=== PATIENT | female | born 1925 | race Caucasian/White ===

== ENCOUNTER → 2016-10-14 | Day surgery (SDC) | payer MEDICARE, OTHER ==
[~2016-10-14] MED LIST: AMLO2.5T OR; BUPIVACAINE/EPINEPHRINE 0.25% PF 30 ML VIAL ONE; ENAL20TA81 PO; HYDR12.57 PO; LACTATED RINGER'S 1000 ML INJ 1,000 ML ONE; LEVO88TA21 PO; MIDAZOLAM HCL 2 MG/2 ML VIAL ONE; NEOMYCIN/POLYMYXIN/BACITRACIN OINT 15 GM TUBE ONE; ONDANSETRON HCL 4 MG/2 ML VIAL IV PUSH ONE; PROP20TA24 PO; PROPOFOL 200 MG/20 ML AMP IV ONE; VANCOMYCIN HCL 1000 MG VIAL ONE
--- NOTE | 2016-10-18 10:56 | TN ---
cc: NOEMY TAYLOR DATE OF SURGERY: 10/14/2016 PREOPERATIVE DIAGNOSES 1. Invasive melanoma of left upper extremity. 2. 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 3. 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 POSTOPERATIVE DIAGNOSES 1. Invasive melanoma of left upper extremity. 2. 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 3. 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 PROCEDURES 1. Wide excision of left upper extremity thin melanoma 6 cm x 2.5 cm. 2. Wide excision of left medial to marionette melanoma in situ 3.5 x 1.5 cm with simple closure of wound. 3. Excision of right lateral to eyebrow basal cell carcinoma 3 cm x 1.2 cm with simple closure of wound. ANESTHESIA General and local anesthetic. ATTENDING SURGEON Noemy Taylor MD. DATA COORDINATOR Staff. BLOOD LOSS Less than 10 cc. COMPLICATIONS None. FINDINGS All wounds closed with minimal tension. INDICATION FOR PROCEDURE The patient is an 89-year-old female with multiple melanomas and melanomatous skin cancers. The patient was referred to surgical oncology for removal in an operating room setting. The patient was recommended plastic surgery for removal of her facial lesions. However, she did decline plastic surgery referral and wished general surgery to remove her facial lesions as she did not want to delay her surgery to be evaluated by a plastic surgeon. We agreed to this and proceeded with the operation. The risks, benefits and alternatives to wide excision of both upper extremity and two facial lesions were explained to the patient in detail prior to the procedure and the patient agreed to undergo the procedure. PROCEDURE After informed consent was obtained, the patient was taken to the operating room and placed in a supine position and placed under general anesthesia. The patient's right side of her face right of the eyebrow and left lateral to her lip and medial to the left marionette skin crease was prepped with Betadine. The left upper extremity was prepped with ChloraPrep and draped in sterile fashion. We started with the excision of the right lesion were we injected local anesthetic at all the planned excision sites and marked these out with appropriate margins. Approximately 0.5 cm from the facial lesions and that 1 cm on the extremity lesion. This was marked with the skin line of tension. We then excised the right lateral to eyebrow lesion horizontally with a 15-blade scalpel. We used Bovie electrocautery to get hemostasis. This was undermined above and beyond to free up some skin flaps approximately 1 cm on either side and this was closed with a simple running 4-0 nylon suture. This was of minimal tension. Antibacterial ointment was then applied. This wound was approximately 2.5 cm x 1.2 cm. We then turned our attention the left medial to marionette lesion. This was excised with this skin lines in tension with a 15-blade scalpel completely. We used Bovie electrocautery to get some hemostasis of some minimal capillary site bleeding. With minimal undermining with some scissors, mobilized some skin to minimize bunching of the skin. We closed this with a running 4-0 nylon without difficulty and with minimal tension. Antibacterial ointment was applied. This wound was 3.5 x 1.5 cm. We then turned our attention to the left upper extremity lesion. This was a 6 cm x 2.5 cm excision with a 15-blade scalpel without difficulty. Used the Bovie electrocautery to dissect down to the subcutaneous tissue and down to the superficial fascia and removed this. A stitch was marked for superior and this was passed off for permanent processing. We then used deep dermal Vicryl sutures followed by Mastisol and Steri-Strips for wound closure with minimal tension. We then placed a sterile dressing. At this point time, the patient was discontinued of the anesthesia and taken to the PACU in stable condition. The patient tolerated the procedure well. No apparent complications. All counts were correct. I was present and scrubbed for the entire procedure. MD BRADLY Lin/BRANDON /10:00 PM /10:15 AM
== END | disposition home or self-care (01) ==
LOC: ESDC 12:04
PROVIDERS: ATTEND Surgery
DX: C43.62 Malignant melanoma of left upper limb, including shoulder (principal); C43.39 Malignant melanoma of other parts of face; C44.319 Basal cell carcinoma of skin of other parts of face
CPT/HCPCS: 88305; 88341; 88342; J2250; J2405; J3010; J3370; J7120

== ENCOUNTER 2017-11-07 17:50 | Emergency (ER) | payer MEDICARE, OTHER ==
[~2017-11-07] VITALS: Ht 147.3 cm; Wt 53.2 kg
[~2017-11-07 17:50] MED LIST changes: -BUPIVACAINE/EPINEPHRINE 0.25% PF 30 ML VIAL ONE; -LACTATED RINGER'S 1000 ML INJ 1,000 ML ONE; -MIDAZOLAM HCL 2 MG/2 ML VIAL ONE; -NEOMYCIN/POLYMYXIN/BACITRACIN OINT 15 GM TUBE ONE; -ONDANSETRON HCL 4 MG/2 ML VIAL IV PUSH ONE; -PROPOFOL 200 MG/20 ML AMP IV ONE; -VANCOMYCIN HCL 1000 MG VIAL ONE
[2017-11-07 18:26] VITALS: BP 155/81; PULSE 58; RESP 18; TEMP 98.7; O2SAT 95
[2017-11-07] MEDS ORDERED: ENAL20TA81 PO (19:58)
[2017-11-07] MEDS ORDERED: AMLO2.5T PO (19:58)
[2017-11-07] MEDS ORDERED: DOXY1CAP91 (19:58)
[2017-11-07] MEDS ORDERED: HYDR12.57 PO (19:58)
[2017-11-07] MEDS ORDERED: BENZ100 PO (19:58)
[2017-11-07] MEDS ORDERED: PROP40TA3 PO (19:58)
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
[2017-11-07] MEDS ORDERED: SODIUM CHLORIDE 0.9% FLUSH 10 ML FLUSH IVF PRN (20:15)
[2017-11-07] MEDS: RESP: ALBUTEROL 2.5 MG/IPRATROPIUM 0.5 MG NEB (SCH) INH ×3 (20:27→21:03)
[2017-11-07 20:56] LABS: AUTOMATED NEUTROPHIL # 5.6 TH/MM3 (1.8-7.7); BASOPHIL # 0.1 TH/MM3 (0-0.2); BASOPHIL % 1.3 % (0.0-2.0); EOSINOPHIL # 0.1 TH/MM3 (0-0.4); EOSINOPHIL % 0.6 % (0.0-4.0); HEMATOCRIT 48.3 % (35.0-46.0); HEMOGLOBIN 16.1 GM/DL (11.6-15.3); LYMPH % 18.5 % (9.0-44.0); LYMPHOCYTE # 1.7 TH/MM3 (1.0-4.8); MEAN CELL VOLUME 93.4 FL (80.0-100.0); MEAN CORPUSCULAR HEMOGLOBIN 31.1 PG (27.0-34.0); MEAN CORPUSCULAR HGB CONC 33.3 % (32.0-36.0); MONO % 19.9 % (0.0-8.0); MONOCYTE # 1.9 TH/MM3 (0-0.9); NEUT % 59.7 % (16.0-70.0); PLATELET COUNT 181 TH/MM3 (150-450); RED BLOOD COUNT 5.17 MIL/MM3 (4.00-5.30); RED CELL DISTRIBUTION WIDTH 12.2 % (11.6-17.2); WHITE BLOOD COUNT 9.4 TH/MM3 (4.0-11.0)
--- NOTE | 2017-11-07 21:04 | RADRPT ---
EXAM DATE/TIME: 11/07/2017 20:43 [facility] COMPARISON: No previous studies available for comparison. INDICATIONS : Pneumonia- Chest pain and shortness of breath. MEDICAL HISTORY : Hypertension. Pneumonia. SURGICAL HISTORY : None. ENCOUNTER: Initial ACUITY: 2 days PAIN SCORE: 3/10 LOCATION: Bilateral chest FINDINGS: AP and lateral views of the chest demonstrate a normal-sized cardiac silhouette with calcification of the aorta. Lungs are underinflated with mild atelectasis at the left lung base. No effusion, consoli dation, or pneumothorax is identified. Bones and soft tissues demonstrate no acute finding. There is thoracic and lumbar scoliosis. CONCLUSION: 1. No acute cardiopulmonary abnormality is identified. There is mild atelectasis at the left lung bas e. 2. Severe thoracic and lumbar scoliosis. Feliberto Valdes MD on November 07, 2017 at 21:01 Board Certified Radiologist. This report was verified electronically.
[2017-11-07 21:12] LABS: ALBUMIN 3.7 GM/DL (3.4-5.0); ALKALINE PHOSPHATASE 82 U/L (45-117); ALT (GPT) 22 U/L (10-53); AST (GOT) 31 U/L (15-37); BICARBONATE 26.8 MEQ/L (21.0-32.0); BLOOD UREA NITROGEN 8 MG/DL (7-18); CALCIUM 8.8 MG/DL (8.5-10.1); CHLORIDE 86 MEQ/L (98-107); CREATININE 0.63 MG/DL (0.50-1.00); GLOMERULAR FILTRATION RATE 89 ML/MIN (>89); GLUCOSE,RANDOM 108 MG/DL (74-106); TOTAL BILIRUBIN ADULT 1.2 MG/DL (0.2-1.0); TOTAL PROTEIN 7.3 GM/DL (6.4-8.2)
[2017-11-07 21:13] LABS: SODIUM (NA) 122 MEQ/L (136-145)
[2017-11-07 21:35] LABS: BILIRUBIN, URINE NEG (NEG); BLOOD, URINE NEG (NEG); GLUCOSE,URINE NEG (NEG); KETONE, URINE TRACE mg/dL (NEG); NITRITE,URINE NEG (NEG); URINE LEUKOCYTE ESTERASE SMALL (NEG)
[2017-11-07 21:45] LABS: URINE COLOR YELLOW (YELLW/STRAW)
[2017-11-07 21:46] LABS: BACTERIA, URINE OCC /hpf; RBC, URINE 0-2 /hpf (0-3); SQUAMOUS EPITHELIAL CELL URINE 0-5 /hpf (0-5)
[2017-11-07 22:20] VITALS: BP 142/78; PULSE 89; RESP 16; O2SAT 99
[2017-11-07] MEDS ORDERED: ALBUAER3 INH (23:02)
[2017-11-07] MEDS ORDERED: GUAISYP4 PO (23:02)
[2017-11-07] MEDS ORDERED: guaiFENesin/CODEINE SYRUP 200 MG/20 MG/10 ML CUP PO ONE (23:15)
== END 2017-11-07 23:31 | disposition home or self-care (01) ==
LOC: PHED 17:50
DX: J40 Bronchitis, not specified as acute or chronic (principal); K57.92 Diverticulitis of intestine, part unspecified, without perforation or abscess without bleeding; E87.1 Hypo-osmolality and hyponatremia; E86.0 Dehydration; R06.02 Shortness of breath; I10 Essential (primary) hypertension; Z88.0 Allergy status to penicillin; Z88.2 Allergy status to sulfonamides; Z88.1 Allergy status to other antibiotic agents
CPT/HCPCS: 36600; 71046; 80053; 81001; 82805; 85025; 87804; 94640; 94664; 99284